=== PATIENT | female | born 1965 | race Caucasian/White ===

== ENCOUNTER 2022-07-16 12:39 | Day surgery (SDCO) | payer OTHER ==
[~2022-07-16] VITALS: Ht 155 cm; Wt 64.0 kg
[~2022-07-16 12:39] MED LIST: ANTIVERT25 MG PO
[2022-07-16 14:20] LABS: BASOPHIL 0.3 % (0-2); HCT 39.6 % (37.0-47.0); HGB 13.3 g/dl (12.5-16.0); LYMPHOCYTE 15.7 % (15-48); MCH 30.7 pg (25.0-31.0); MCHC 33.6 g/dL (32.0-36.0); MCV 91.5 fL (78.0-100.0); MONOCYTE 8.5 % (0-12); MPV 10.1 fL (6.0-9.5); NRBC 0; PLT 219 K/uL (150-400); RBC 4.33 M/uL (4.20-5.40); RDW 12.5 % (11.5-14.0); WBC 13.2 K/uL (4.0-10.5)
[2022-07-16 14:52] LABS: ALBUMIN 2.8 g/dL (3.4-5.0); ALKALINE PHOSHATASE 90 U/L (46-116); ALT 14 U/L (14-59); AST 10 U/L (15-37); BILIRUBIN - TOTAL 0.3 mg/dL (0.2-1.0); BUN 12 mg/dL (7-18); BUN/CREAT RATIO (CALC) 15.2 RATIO; CHLORIDE 99 mmol/L (98-107); CO2 (BICARBONATE) 28 mmol/L (21-32); CREATININE 0.79 mg/dL (0.51-0.95); GLOBULIN (CALCULATION) 4.2 g/dL; GLUCOSE 312 mg/dL (74-106); POTASSIUM 3.7 mmol/L (3.5-5.1)
[2022-07-16 15:03] LABS: LACTIC ACID 1.6 mmol/L (0.4-1.9)
[2022-07-16 16:20] LABS: BILIRUBIN NEGATIVE (NEGATIVE); BLOOD NEGATIVE Ery/uL (NEGATIVE); CLARITY CLEAR (CLEAR); COLOR YELLOW (YELLOW); GLUCOSE (U) 3+ mg/dL (NORMAL); LEUKOCYTES NEGATIVE Leu/uL (NEGATIVE); NITRITE NEGATIVE (NEGATIVE); PROTEIN NEGATIVE (NEGATIVE); UROBILINOGEN 0.2 mg/dL (0.2-1.0)
[2022-07-16] MEDS ORDERED: GLUCOTROL XL5 MG PO (17:42)
[2022-07-16] MEDS ORDERED: FOLIC ACID1 MG PO (17:42)
[2022-07-16] MEDS ORDERED: CLONAZEPAM0.5 MG PO (17:42)
[2022-07-16] MEDS ORDERED: METFORMIN HCL500 MG PO (17:43)
[2022-07-16] MEDS ORDERED: COZAAR50 MG PO (17:43)
[2022-07-16] MEDS ORDERED: ONDANSETRON HCL4 MG PO (17:44)
[2022-07-16] MEDS ORDERED: REQUIP1 MG PO (17:44)
[2022-07-16] MEDS ORDERED: INDERAL20 MG PO (17:44)
[2022-07-16] MEDS ORDERED: SEROQUEL 25MG T25 MG PO (17:44)
[2022-07-16] MEDS ORDERED: ZOLOFT50 MG PO (17:45)
[2022-07-16] MEDS ORDERED: SYMBICORT 80-10.2 GM INH (17:45)
[2022-07-16 18:18] LABS: LACTIC ACID 0.5 mmol/L (0.4-1.9)
[2022-07-17 06:06] LABS: HCT 35.6 % (37.0-47.0); MCH 31.2 pg (25.0-31.0); MCHC 33.7 g/dL (32.0-36.0); MCV 92.5 fL (78.0-100.0); RBC 3.85 M/uL (4.20-5.40); RDW 12.6 % (11.5-14.0); WBC 10.8 K/uL (4.0-10.5)
[2022-07-17 07:19] LABS: BUN 13 mg/dL (7-18); CHLORIDE 107 mmol/L (98-107); CO2 (BICARBONATE) 28 mmol/L (21-32); CPK 40 U/L (26-192); CREATININE 0.52 mg/dL (0.51-0.95); GLUCOSE 182 mg/dL (74-106); POTASSIUM 3.9 mmol/L (3.5-5.1)
[2022-07-17 07:21] LABS: C-REACTIVE PROTEIN > 18.00 mg/dL (<=0.90)
[2022-07-17 11:51] LABS: IRON % SATURATION 10.1 %SAT (20-50)
[2022-07-18 06:54] LABS: HCT 35.8 % (37.0-47.0); HGB 11.8 g/dl (12.5-16.0); MCH 30.7 pg (25.0-31.0); MCV 93.2 fL (78.0-100.0); MPV 10.4 fL (6.0-9.5); RBC 3.84 M/uL (4.20-5.40); RDW 12.8 % (11.5-14.0); WBC 10.5 K/uL (4.0-10.5)
[2022-07-18 07:34] LABS: BUN/CREAT RATIO (CALC) 33.9 RATIO; CREATININE 0.59 mg/dL (0.51-0.95); POTASSIUM 3.6 mmol/L (3.5-5.1)
[2022-07-18] MEDS ORDERED: SPIRIVA 185 PUFFS/IN INH (10:15)
[2022-07-18] MEDS ORDERED: DUONEB 2.5-0.5M1 AMP NEB (10:15)
[2022-07-18] MEDS ORDERED: VIBRAMYCIN100 MG PO (10:29)
--- NOTE | 2022-07-18 10:57 | NUR ---
07/18/22 Ms. Alarcon lives at home with her spouse. She is independent in the home and community. A referral was made to [facility] for 02 at 2 L per patient choice.
== END 2022-07-18 14:05 | disposition home or self-care (01) ==
LOC: FER 12:39 → FMS 16:03
PROVIDERS: Physician Assistant; ADMIT Family Medicine
DX: A41.9 Sepsis, unspecified organism (principal); J96.01 Acute respiratory failure with hypoxia; N17.9 Acute kidney failure, unspecified; R07.9 Chest pain, unspecified; E11.9 Type 2 diabetes mellitus without complications; D64.9 Anemia, unspecified; J21.9 Acute bronchiolitis, unspecified; E88.09 Other disorders of plasma-protein metabolism, not elsewhere classified; Z79.84 Long term (current) use of oral hypoglycemic drugs; Z79.899 Other long term (current) drug therapy
CPT/HCPCS: 36415; 36600; 71045; 71250; 80048; 80053; 81001; 82043; 82550; 82570; 82607; 82803; 83036; 83540; 83550; 83605; 84484; 85025; 86140; 87040; 93005; 94010; 94640; 94664; 94760; G0378; J1650; J2930; J7030; J7050; J7120